=== PATIENT | male | born 1960 | race Caucasian/White ===

== ENCOUNTER 2024-10-10 22:09 | Emergency (ER) | payer SELFPAY ==
[2024-10-10 22:12] VITALS: BP 129/79
[2024-10-11 00:17] VITALS: BP 128/72
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
== END 2024-10-11 01:05 | disposition home or self-care (01) ==
LOC: EMR 22:09
PROVIDERS: EMERGENCY PHYSICIAN Emergency Medicine; FAMILY PHYSICIAN Internal Medicine
DX: S20.219A Contusion of unspecified front wall of thorax, initial encounter (principal); V49.40XA Driver injured in collision with unspecified motor vehicles in traffic accident, initial encounter; I25.10 Atherosclerotic heart disease of native coronary artery without angina pectoris
CPT/HCPCS: 99284; 71101; 93005